=== PATIENT | male | born 1990 | race Caucasian/White ===

== ENCOUNTER 2021-12-19 14:46 | Emergency (ER) | payer OTHER ==
[~2021-12-19] VITALS: Ht 182.8 cm; Wt 90.7 kg
[2021-12-19] MEDS ORDERED: TYLENOL325 M1 PO (19:15)
[2021-12-19] MEDS ORDERED: NAPROXEN250 MG PO (19:15)
== END 2021-12-19 20:09 | disposition home or self-care (01) ==
LOC: ED 14:46
DX: S83.104A Unspecified dislocation of right knee, initial encounter (principal); F17.200 Nicotine dependence, unspecified, uncomplicated; W18.39XA Other fall on same level, initial encounter; Y93.89 Activity, other specified; Y92.89 Other specified places as the place of occurrence of the external cause; Y99.8 Other external cause status